=== PATIENT | male | born 1940 | race Caucasian/White ===

== ENCOUNTER 2019-08-20 15:30 | Inpatient (IN) | payer OTHER ==
[~2019-08-20] VITALS: Ht 167.6 cm; Wt 64.9 kg
[2019-08-24] MEDS ORDERED: LATANOPROST2.5 ML (10:25)
[2019-08-24] MEDS ORDERED: ADULT LOW DOSE81 M1 (10:28)
[2019-08-24] MEDS ORDERED: SIMVASTATIN20 MG (10:28)
[2019-08-24] MEDS ORDERED: GLIPIZIDE XL10 MG (10:28)
[2019-08-24] MEDS ORDERED: ZESTRIL2.5 MG (10:28)
[2019-08-24] MEDS ORDERED: FINASTERIDE5 MG (10:28)
[2019-08-24] MEDS ORDERED: METFORMIN HCL500 M4 (10:29)
== END 2019-08-30 11:06 | disposition home or self-care (01) | DRG 435 ==
LOC: ER 15:30 → SURH 08-21 10:10 → SEC-K 08-21 10:10 → SURH 08-21 17:10
PROVIDERS: ADMIT Internal Medicine; ATTEND Internal Medicine
PROC: BW30YZZ Magnetic Resonance Imaging (MRI) of Abdomen using Other Contrast (ICD-10-PCS; 2019-08-21)
PROC: BW3GYZZ Magnetic Resonance Imaging (MRI) of Pelvic Region using Other Contrast (ICD-10-PCS; 2019-08-21)
PROC: BB24ZZZ Computerized Tomography (CT Scan) of Bilateral Lungs (ICD-10-PCS; 2019-08-21)
PROC: 8E0ZXY6 Isolation (ICD-10-PCS; 2019-08-21)
PROC: 4A033R1 Measurement of Arterial Saturation, Peripheral, Percutaneous Approach (ICD-10-PCS; 2019-08-22)
PROC: 3E0436Z Introduction of Nutritional Substance into Central Vein, Percutaneous Approach (ICD-10-PCS; 2019-08-22)
PROC: 05HY33Z Insertion of Infusion Device into Upper Vein, Percutaneous Approach (ICD-10-PCS; 2019-08-22)
PROC: 4A033R1 Measurement of Arterial Saturation, Peripheral, Percutaneous Approach (ICD-10-PCS; 2019-08-22)
PROC: 0FB03ZX Excision of Liver, Percutaneous Approach, Diagnostic (ICD-10-PCS; principal; 2019-08-24)
DX: C78.7 Secondary malignant neoplasm of liver and intrahepatic bile duct (principal); K85.80 Other acute pancreatitis without necrosis or infection; K81.0 Acute cholecystitis; J98.11 Atelectasis; K57.32 Diverticulitis of large intestine without perforation or abscess without bleeding; C79.51 Secondary malignant neoplasm of bone; C80.1 Malignant (primary) neoplasm, unspecified; J43.2 Centrilobular emphysema; I10 Essential (primary) hypertension; K76.89 Other specified diseases of liver; N40.0 Benign prostatic hyperplasia without lower urinary tract symptoms; E13.9 Other specified diabetes mellitus without complications; Z79.84 Long term (current) use of oral hypoglycemic drugs
CPT/HCPCS: 72196; 72197; 74182; 74183